=== PATIENT | female | born 2000 | race Caucasian/White ===

== ENCOUNTER 2019-02-23 22:46 | Emergency (ER) | payer SELFPAY ==
[~2019-02-23] VITALS: Ht 152.4 cm; Wt 52.3 kg
[2019-02-23 22:52] VITALS: Ht 152.4 cm; Wt 52.3 kg
[2019-02-23] MEDS ORDERED: ACETAMINOPHEN 325 MG TAB PO ONE (23:00)
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
[2019-02-23] MEDS ORDERED: ACET325T33 PO (23:36)
[2019-02-24 00:15] VITALS: BP 102/67; PULSE 79; RESP 19
== END 2019-02-24 00:54 | disposition home or self-care (01) ==
LOC: E/R 22:46
DX: O9A.212 Injury, poisoning and certain other consequences of external causes complicating pregnancy, second trimester (principal); S50.311A Abrasion of right elbow, initial encounter; S09.90XA Unspecified injury of head, initial encounter; S39.92XA Unspecified injury of lower back, initial encounter; Y04.2XXA Assault by strike against or bumped into by another person, initial encounter; Z3A.21 21 weeks gestation of pregnancy
CPT/HCPCS: 99282